=== PATIENT | female | born 1980 | race Hispanic/Latino ===

== ENCOUNTER 2020-09-14 17:51 | Emergency (ER) | payer MEDICAID ==
[2020-09-14 18:06] VITALS: BP 141/76
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
== END 2020-09-14 18:32 | disposition left against medical advice (07) ==
LOC: ED 17:51
DX: R10.9 Unspecified abdominal pain (principal); Z53.21 Procedure and treatment not carried out due to patient leaving prior to being seen by health care provider

== ENCOUNTER 2020-09-30 12:00 | Emergency (ER) | payer MEDICAID ==
[2020-09-30 12:28] VITALS: BP 127/87
[2020-09-30] MEDS ORDERED: ONDANSETRON 4 MG ODT TAB PO ONE (13:53)
[2020-09-30] MEDS ORDERED: ONDANSETRON 4 MG ODT TAB ONE (13:53)
--- NOTE | 2020-09-30 13:53 | Event Note ---
ED Screening Note ED Screening Note: left sided abd pain this morning +n/v no diarrhea normal BM yesterday PMHx fibromyalgia, PUD, Protein C deficiency adverse reaction to compazine unsure of last menstrual cycle only abd surgery hx is tubal ligation This initial assessment/diagnostic orders/clinical plan/treatment(s) is/are subject to change based on patients health status, clinical progression and re- assessment by fellow clinical providers in the ED. Further treatment and workup at subsequent clinical providers discretion. Patient/guardian urged not to elope from the ED as their condition may be serious if not clinically assessed and managed. Initial orders include: labs, UA zofran ODT
[2020-09-30 14:24] LABS: Basophils % (Auto) 0.5 % (0.0-1.8); Eosinophils % (Auto) 0.1 % (0.0-4.3); Hematocrit 45.5 % (30.3-42.9); Hemoglobin 15.5 gm/dl (10.1-14.3); Lymphocytes # (Auto) 1.6 K/mm3 (1.2-5.4); Lymphocytes % (Auto) 17.8 % (13.4-35.0); Mean Corpuscular HGB Conc 34 % (30-34); Mean Corpuscular Volume 92 fl (79-97); Monocytes # (Auto) 0.2 K/mm3 (0.0-0.8); Monocytes % (Auto) 2.5 % (0.0-7.3); Platelet Count 197 K/mm3 (140-440); Red Blood Count 4.97 M/mm3 (3.65-5.03); Red Cell Distribution Width 13.9 % (13.2-15.2)
[2020-09-30] MEDS ORDERED: SODIUM CHLORIDE 0.9% 1000 ML 1,000 ML IV ONE (14:46)
[2020-09-30] MEDS ORDERED: KETOROLAC 30 MG/1 ML INJ IV ONE (14:46)
[2020-09-30] MEDS ORDERED: DICYCLOMINE 20 MG/2 ML INJ IM ONE (14:46)
--- NOTE | 2020-09-30 14:49 | Emergency Department Report ---
<ELINOR RENE - Last Filed: 09/30/20 17:37> ED Abdominal Pain HPI - General Chief Complaint: Abdominal Pain Stated Complaint: ABD PAIN/VOMITING Time Seen by Provider: 09/30/20 13:51 Source: patient Mode of arrival: Wheelchair Limitations: No Limitations - History of Present Illness Initial Comments: 40-year-old female with a past medical history of protein C deficiency, history of PE, not currently on any anticoagulants, peptic ulcer disease, gallstones, and chronic pain currently on methadone presents to the ER today complaining of left-sided abdominal pain. Patient states that symptoms started a day and a half ago. She states that initially was an intermittent pain but today has been more constant. She reports associated nausea and vomiting since yesterday. She states that she has vomited about 3-4 times, emesis is mainly food without hematemesis or coffee ground She denies any diarrhea constipation. She denies any fever or chills. She denies any UTI symptoms. She chest pain or SOB. She is unsure of her last menstrual cycle, and she is not on any control. She states that she is not sure of . Patient denies similar pain in the past. Patient states that she has not taken her methadone in 3 days, she states that she has been able to get a ride to the clinic. She reports no chest pain, shortness of breath or any other symptoms at this time. MD Complaint: abdominal pain -: days(s) (1.5) Location: [facility] Migration to: no migration Severity scale (0 -10): 8 - Related Data Home Medications Medication Instructions Recorded Confirmed Last Taken Methadone 50 mg PO DAILY 08/25/18 08/25/18 08/22/18 Previous Rx's Medication Instructions Recorded Last Taken Type Ketorolac [Toradol] 10 mg PO Q6H PRN #20 tablet 08/28/18 Unknown Rx Nystatin/Triamcin 30 gm TP BID #1 cream..g. 09/04/18 Unknown Rx [Nystatin-Triamcinolone Cream] Docusate Sodium [Colace] 100 mg PO BID #30 capsule 09/30/20 Unknown Rx Magnesium Citrate [Citrate of 296 ml PO ONCE #1 solution 09/30/20 Unknown Rx Magnesia] Allergies Allergy/AdvReac Type Severity Reaction Status Date / Time No Known Allergies Allergy Verified 09/14/20 18:03 ED Review of Systems Comment: All other systems reviewed and negative Constitutional: denies: chills, fever Eyes: denies: eye pain, eye discharge, vision change ENT: denies: ear pain, throat pain Respiratory: denies: cough, shortness of breath, wheezing Cardiovascular: denies: chest pain, palpitations Gastrointestinal: abdominal pain, nausea, vomiting Genitourinary: denies: urgency, dysuria, frequency, hematuria, discharge, abnormal menses Musculoskeletal: denies: back pain, joint swelling, arthralgia Skin: denies: rash, lesions Neurological: denies: headache, weakness, paresthesias Psychiatric: denies: anxiety, depression Hematological/Lymphatic: denies: easy bleeding, easy bruising ED Past Medical Hx - Past Medical History Previous Medical History?: Yes Hx Deep Vein Thrombosis: Yes (Protein C Def.) Hx Pulmonary Embolism: Yes (Protein C Def.) Hx Seizures: Yes (2 yrs ago) Hx Asthma: No Additional medical history: Gallstones, Recent admission EGD dx ulcers, Thickening of the esophagus and biopsies done - Surgical History Past Surgical History?: Yes Hx Pacemaker: No Hx Internal Defibrillator: No Additional Surgical History: Tubal ligation, Right arm cyst removed - Social History Smoking Status: Current Every Day Smoker Substance Use Type: Marijuana - Medications Home Medications: Home Medications Medication Instructions Recorded Confirmed Last Taken Type Methadone 50 mg PO DAILY 08/25/18 08/25/18 08/22/18 History Ketorolac [Toradol] 10 mg PO Q6H PRN #20 tablet 08/28/18 Unknown Rx Nystatin/Triamcin 30 gm TP BID #1 cream..g. 09/04/18 Unknown Rx [Nystatin-Triamcinolone Cream] Docusate Sodium [Colace] 100 mg PO BID #30 capsule 09/30/20 Unknown Rx Magnesium Citrate [Citrate of 296 ml PO ONCE #1 solution 09/30/20 Unknown Rx Magnesia] ED Physical Exam - General Limitations: No Limitations General appearance: alert, in no apparent distress - Head Head exam: Present: atraumatic, normocephalic, normal inspection - Eye Eye exam: Present: normal appearance, PERRL, EOMI - ENT ENT exam: Present: normal exam, normal orophraynx, mucous membranes dry - Neck Neck exam: Present: normal inspection - Respiratory Respiratory exam: Present: normal lung sounds bilaterally. Absent: respiratory distress - Cardiovascular Cardiovascular Exam: Present: regular rate, normal rhythm, normal heart sounds - GI/Abdominal GI/Abdominal exam: Present: soft, tenderness (LUQ). Absent: distended, rebound - Extremities Exam Extremities exam: Present: normal inspection - Back Exam Back exam: Present: normal inspection, full ROM - Neurological Exam Neurological exam: Present: alert, oriented X3, CN II-XII intact, normal gait - Psychiatric Psychiatric exam: Present: normal affect, normal mood - Skin Skin exam: Present: intact ED Medical Decision Making - Lab Data Result diagrams: 09/30/20 14:13 09/30/20 14:13 - Medical Decision Making 1740 -- Case/labs Discussed with Nicholas Fritz. CT UA and EKG pending. ED Disposition Clinical Impression: Constipation Qualifiers: Constipation type: unspecified constipation type Qualified Code(s): K59.00 - Constipation, unspecified Disposition: TO HOME OR SELFCARE Condition: Stable Instructions: Abdominal Pain (ED), Constipation, Adult, Constipation, Adult, [id number] Prescriptions: Magnesium Citrate [Citrate of Magnesia] 296 ml PO ONCE #1 solution Docusate Sodium [Colace] 100 mg PO BID #30 capsule Referrals: JAMEEL CALLAWAY MD [Staff Physician] - 3-5 Days <NICHOLAS FRITZ - Last Filed: 09/30/20 18:08> ED Review of Systems ROS: Stated complaint: ABD PAIN/VOMITING Other details as noted in HPI ED Course Vital Signs 09/30/20 12:26 Temperature 98.5 F Pulse Rate 78 Respiratory 17 Rate Blood Pressure 127/87 [Left] O2 Sat by Pulse 97 Oximetry ED Medical Decision Making - Lab Data Result diagrams: 09/30/20 14:13 09/30/20 14:13 Labs 09/30/20 09/30/20 09/30/20 14:13 14:13 14:13 WBC 8.8 RBC 4.97 Hgb 15.5 H Hct 45.5 H MCV 92 MCH 31 MCHC 34 RDW 13.9 Plt Count 197 Lymph % (Auto) 17.8 [place] % (Auto) 2.5 Eos % (Auto) 0.1 Baso % (Auto) 0.5 Lymph # (Auto) 1.6 [place] # (Auto) 0.2 Eos # (Auto) 0.0 Baso # (Auto) 0.0 Seg Neutrophils % 79.1 H Seg Neutrophils # 7.0 Sodium 136 L Potassium 4.0 Chloride 102.3 Carbon Dioxide 23 Anion Gap 15 BUN 11 Creatinine 0.6 Estimated GFR > 60 BUN/Creatinine Ratio 18 Glucose 130 H Calcium 10.4 H Total Bilirubin 0.80 AST 78 H ALT 117 H Alkaline Phosphatase 89 Troponin T Total Protein 8.3 H Albumin 4.3 Albumin/Globulin Ratio 1.1 Lipase 29 HCG, Quant < 2 09/30/20 14:48 WBC RBC Hgb Hct MCV MCH MCHC RDW Plt Count Lymph % (Auto) [place] % (Auto) Eos % (Auto) Baso % (Auto) Lymph # (Auto) [place] # (Auto) Eos # (Auto) Baso # (Auto) Seg Neutrophils % Seg Neutrophils # Sodium Potassium Chloride Carbon Dioxide Anion Gap BUN Creatinine Estimated GFR BUN/Creatinine Ratio Glucose Calcium Total Bilirubin AST ALT Alkaline Phosphatase Troponin T < 0.010 Total Protein Albumin Albumin/Globulin Ratio Lipase HCG, Quant - Radiology Data Radiology results: report reviewed, image reviewed Findings Reporting MD: Kaleb Vela Dictation Time: September 30, 2020 16:37 Unix System Administrator: Not available Cad Draftsman Date: CT abdomen pelvis with and without con INDICATION / CLINICAL INFORMATION: Severe left sided abdominal pain. TECHNIQUE: Axial CT images were obtained through the abdomen and pelvis prior to and after IV contrast. All CT scans at this location are performed using CT dose reduction for ALARA by means of automated exposure control. COMPARISON: 08/24/2018. FINDINGS: LOWER CHEST: Unremarkable LIVER: Unremarkable GALLBLADDER/BILIARY TREE: Unremarkable PANCREAS: Unremarkable SPLEEN: Unremarkable ADRENALS: Unremarkable KIDNEYS / URETER: Partially duplicated left collecting system. No hydronephrosis. Kidneys enhance symmetrically. URINARY BLADDER: Unremarkable REPRODUCTIVE ORGANS: Uterus is unremarkable for age. There is a 3 cm right ovarian cyst. STOMACH / SMALL BOWEL: Stomach and small bowel are normal in caliber. No evidence of bowel inflammation. COLON: Moderate amount of stool distends the rectal vault. No colonic wall thickening or pericolonic inflammatory stranding. The appendix is normal in caliber. LYMPH NODES: No significant adenopathy. VASCULATURE: No significant abnormality. OTHER: No free air, free fluid, or focal fluid collection is identified. SKELETAL SYSTEM: No acute osseous findings. IMPRESSION: 1. Moderate amount of stool distends the rectal vault. Correlate for fecal impaction. 2. Otherwise, no acute process of the abdomen or pelvis. Signer Name: Kaleb Vela MD Signed: 09/30/2020 4:37 PM Workstation Name: [id number] - Medical Decision Making CT abdomen and pelvis demonstrates moderate stool loading, no acute findings, discussed findings with patient, patient states last bowel movement yesterday scant amount "small rabbit pellets". Discussed constipation, hydration. Will DC to home with laxative of choice , hydrate as discussed, follow-up with PCP in 2 to 3 days. Patient verbalizes agreement and understanding with discharge plan. Patient will be DC'd home in stable condition at this time. Critical care attestation.: If time is entered above; I have spent that time in minutes in the direct care of this critically ill patient, excluding procedure time. ED Disposition Is pt being admited?: No Does the pt Need Aspirin: No Time of Disposition: 18:08
[2020-09-30] MEDS: PROMETHAZINE 25 MG TAB PO ONE ×2 (15:04→15:16)
[2020-09-30] MEDS: FAMOTIDINE 20 MG TAB PO ONE ×2 (15:04→15:16)
[2020-09-30] MEDS ORDERED: PROCHLORPERAZINE EDISYLATE 10 MG/2 ML VIAL IV NR (15:11)
[2020-09-30] MEDS ORDERED: FAMOTIDINE 20 MG/2 ML INJ IV ONE (15:11)
[2020-09-30 15:39] LABS: Alanine Aminotransferase 117 units/L (7-56); Albumin 4.3 g/dL (3.9-5); Blood Urea Nitrogen 11 mg/dL (7-17); Calcium 10.4 mg/dL (8.4-10.2); Hemolysis Index 7
[2020-09-30 15:46] LABS: BUN/Creatinine Ratio 18
--- NOTE | 2020-09-30 17:42 | Cat Scan Report ---
CT abdomen pelvis with and without con INDICATION / CLINICAL INFORMATION: Severe left sided abdominal pain. TECHNIQUE: Axial CT images were obtained through the abdomen and pelvis prior to and after IV contras t. All CT scans at this location are performed using CT dose reduction for ALARA by means of automat ed exposure control. COMPARISON: 08/24/2018. FINDINGS: LOWER CHEST: Unremarkable LIVER: Unremarkable GALLBLADDER/BILIARY TREE: Unremarkable PANCREAS: Unremarkable SPLEEN: Unremarkable ADRENALS: Unremarkable KIDNEYS / URETER: Partially duplicated left collecting system. No hydronephrosis. Kidneys enhance sym metrically. URINARY BLADDER: Unremarkable REPRODUCTIVE ORGANS: Uterus is unremarkable for age. There is a 3 cm right ovarian cyst. STOMACH / SMALL BOWEL: Stomach and small bowel are normal in caliber. No evidence of bowel inflammati on. COLON: Moderate amount of stool distends the rectal vault. No colonic wall thickening or pericolonic inflammatory stranding. The appendix is normal in caliber. LYMPH NODES: No significant adenopathy. VASCULATURE: No significant abnormality. OTHER: No free air, free fluid, or focal fluid collection is identified. SKELETAL SYSTEM: No acute osseous findings. IMPRESSION: 1. Moderate amount of stool distends the rectal vault. Correlate for fecal impaction. 2. Otherwise, no acute process of the abdomen or pelvis. Signer Name: Kaleb Vela MD Signed: 09/30/2020 5:37 PM Workstation Name: [id number]
[2020-09-30] MEDS ORDERED: FLEET ENEMA PR ONE (17:59)
== END 2020-09-30 18:25 | disposition home or self-care (01) ==
LOC: ED 12:00
DX: K59.00 Constipation, unspecified (principal); F17.200 Nicotine dependence, unspecified, uncomplicated; F12.90 Cannabis use, unspecified, uncomplicated; Z79.899 Other long term (current) drug therapy; Z86.69 Personal history of other diseases of the nervous system and sense organs; Z98.890 Other specified postprocedural states; Z98.51 Tubal ligation status
CPT/HCPCS: 36415; 74177; 80053; 83690; 84484; 84702; 85025; 96361; 96374; 96375; 99284; J0780; J1885; J7030; Q9967; Q0162; Q0169

== ENCOUNTER 2020-10-14 05:07 | Emergency (ER) | payer MEDICAID | END 2020-10-14 07:21 | disposition left against medical advice (07) | LOC: ED 05:07 | DX: M79.10 Myalgia, unspecified site (principal); Z53.21 Procedure and treatment not carried out due to patient leaving prior to being seen by health care provider ==

== ENCOUNTER 2020-10-14 07:33 | Emergency (ER) | payer MEDICAID ==
[2020-10-14 07:56] VITALS: BP 124/80
[2020-10-14 08:35] LABS: Bilirubin,Urine NEG (Negative); Blood,Urine NEG (Negative); Color,Urine Yellow (Yellow); Mucus,Urine 3+ /HPF; Protein,Urine <15 mg/dL mg/dL (Negative); Urobilinogen,Urine < 2.0 mg/dL (<2.0)
[2020-10-14 08:37] LABS: HCG Qualitative,Urine Negative (Negative)
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
== END 2020-10-14 09:13 | disposition home or self-care (01) ==
LOC: ED 07:33
DX: R10.9 Unspecified abdominal pain (principal); F17.200 Nicotine dependence, unspecified, uncomplicated; F12.90 Cannabis use, unspecified, uncomplicated; Z88.8 Allergy status to other drugs, medicaments and biological substances; Z79.899 Other long term (current) drug therapy; Z86.69 Personal history of other diseases of the nervous system and sense organs; Z98.890 Other specified postprocedural states; Z98.51 Tubal ligation status; Z59.0 Homelessness
CPT/HCPCS: 81001; 81025

== ENCOUNTER 2020-10-14 21:43 | Emergency (ER) | payer MEDICAID ==
[2020-10-15 02:56] VITALS: BP 125/72
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
== END 2020-10-15 05:25 | disposition home or self-care (01) ==
LOC: ED 21:43
DX: R63.0 Anorexia (principal); F17.200 Nicotine dependence, unspecified, uncomplicated; Z98.51 Tubal ligation status; Z59.0 Homelessness; Z79.899 Other long term (current) drug therapy; Z86.711 Personal history of pulmonary embolism; Z79.01 Long term (current) use of anticoagulants; Z86.718 Personal history of other venous thrombosis and embolism
CPT/HCPCS: 99282

== ENCOUNTER 2020-12-03 16:54 | Emergency (ER) | payer MEDICAID ==
[2020-12-03 17:11] VITALS: BP 115/72
--- NOTE | 2020-12-03 17:16 | Emergency Department Report ---
ED General Adult HPI - General Chief complaint: Pain General Stated complaint: HEADACHE Time Seen by Provider: 12/03/20 17:12 Source: patient Mode of arrival: Ambulatory Limitations: No Limitations - History of Present Illness Initial comments: Patient is a 40-year-old female presents emergency room complaints of vague symptoms that have been occurring for a month. She states her symptoms are generalized body aches, headache, back ache, ear pain. It appears that she has been seen for the symptoms in the past and that this is actually been going on for more than a month. She has not followed up with her primary care doctor. She denies any fever, nausea, vomiting, diarrhea, cough, chest pain, shortness of breath, abdominal pain, leg pain, leg swelling. She has an allergy to prochlorperazine. - Related Data Home Medications Medication Instructions Recorded Confirmed Last Taken Methadone 50 mg PO DAILY 08/25/18 08/25/18 08/22/18 Previous Rx's Medication Instructions Recorded Last Taken Type Ketorolac [Toradol] 10 mg PO Q6H PRN #20 tablet 08/28/18 Unknown Rx Nystatin/Triamcin 30 gm TP BID #1 cream..g. 09/04/18 Unknown Rx [Nystatin-Triamcinolone Cream] Docusate Sodium [Colace] 100 mg PO BID #30 capsule 09/30/20 Unknown Rx Magnesium Citrate [Citrate of 296 ml PO ONCE #1 solution 09/30/20 Unknown Rx Magnesia] Naproxen [EC-Naprosyn] 500 mg PO BID PRN #14 tablet.dr 12/03/20 Unknown Rx cephALEXin [Keflex] 500 mg PO BID 7 Days #14 cap 12/03/20 Unknown Rx methOCARBAMOL [Robaxin TAB] 500 mg PO BID PRN #14 tab 12/03/20 Unknown Rx Allergies Allergy/AdvReac Type Severity Reaction Status Date / Time prochlorperazine Allergy Unknown Verified 12/03/20 17:09 [From Compazine] ED Review of Systems ROS: Stated complaint: HEADACHE Other details as noted in HPI Comment: All other systems reviewed and negative ED Past Medical Hx - Past Medical History Hx Deep Vein Thrombosis: Yes (Protein C Def.) Hx Pulmonary Embolism: Yes (Protein C Def.) Hx Seizures: Yes (2 yrs ago) Hx Asthma: No Additional medical history: Gallstones, Recent admission EGD dx ulcers, Thickening of the esophagus and biopsies done - Surgical History Hx Pacemaker: No Hx Internal Defibrillator: No Additional Surgical History: Tubal ligation, Right arm cyst removed - Social History Smoking Status: Current Every Day Smoker Substance Use Type: None - Medications Home Medications: Home Medications Medication Instructions Recorded Confirmed Last Taken Type Methadone 50 mg PO DAILY 08/25/18 08/25/18 08/22/18 History Ketorolac [Toradol] 10 mg PO Q6H PRN #20 tablet 08/28/18 Unknown Rx Nystatin/Triamcin 30 gm TP BID #1 cream..g. 09/04/18 Unknown Rx [Nystatin-Triamcinolone Cream] Docusate Sodium [Colace] 100 mg PO BID #30 capsule 09/30/20 Unknown Rx Magnesium Citrate [Citrate of 296 ml PO ONCE #1 solution 09/30/20 Unknown Rx Magnesia] Naproxen [EC-Naprosyn] 500 mg PO BID PRN #14 tablet.dr 12/03/20 Unknown Rx cephALEXin [Keflex] 500 mg PO BID 7 Days #14 cap 12/03/20 Unknown Rx methOCARBAMOL [Robaxin TAB] 500 mg PO BID PRN #14 tab 12/03/20 Unknown Rx ED Physical Exam - General Limitations: No Limitations General appearance: alert, in no apparent distress - Head Head exam: Present: atraumatic, normocephalic - Eye Eye exam: Present: normal appearance - ENT ENT exam: Present: normal orophraynx, mucous membranes moist, TM's normal bilaterally, normal external ear exam - Respiratory Respiratory exam: Present: normal lung sounds bilaterally. Absent: respiratory distress, wheezes, rales, rhonchi, stridor, chest wall tenderness, accessory muscle use, decreased breath sounds, prolonged expiratory - Cardiovascular Cardiovascular Exam: Present: regular rate, normal rhythm, normal heart sounds. Absent: systolic murmur, diastolic murmur, rubs, gallop - Back Exam Back exam: Present: normal inspection, full ROM. Absent: CVA tenderness (R), CVA tenderness (L), paraspinal tenderness, vertebral tenderness - Neurological Exam Neurological exam: Present: alert, oriented X3 - Psychiatric Psychiatric exam: Present: normal affect, normal mood - Skin Skin exam: Present: warm, dry, intact ED Course Vital Signs 12/03/20 17:10 Temperature 98.3 F Pulse Rate 85 Respiratory 16 Rate Blood Pressure 115/72 O2 Sat by Pulse 96 Oximetry - Reevaluation(s) Reevaluation #1: 12/03/20 18:41 Attempted to call patient for discharge, unable to locate patient, attempted to call number on patient's chart and it is not in service ED Medical Decision Making - Lab Data Result diagrams: 12/03/20 17:35 12/03/20 17:35 Lab Results 12/03/20 12/03/20 12/03/20 Range/Units 17:22 17:35 17:35 WBC 9.8 (4.5-11.0) K/mm3 RBC 4.29 (3.65-5.03) M/mm3 Hgb 13.9 (10.1-14.3) gm/dl Hct 40.5 (30.3-42.9) % MCV 94 (79-97) fl MCH 32 (28-32) pg MCHC 34 (30-34) % RDW 14.4 (13.2-15.2) % Plt Count 197 (140-440) K/mm3 Lymph % (Auto) 22.2 (13.4-35.0) % [place] % (Auto) 7.0 (0.0-7.3) % Eos % (Auto) 0.9 (0.0-4.3) % Baso % (Auto) 0.4 (0.0-1.8) % Lymph # (Auto) 2.2 (1.2-5.4) K/mm3 [place] # (Auto) 0.7 (0.0-0.8) K/mm3 Eos # (Auto) 0.1 (0.0-0.4) K/mm3 Baso # (Auto) 0.0 (0.0-0.1) K/mm3 Seg Neutrophils % 69.5 (40.0-70.0) % Seg Neutrophils # 6.8 (1.8-7.7) K/mm3 Sodium 137 (137-145) mmol/L Potassium 4.0 (3.6-5.0) mmol/L Chloride 104.0 (98-107) mmol/L Carbon Dioxide 20 L (22-30) mmol/L Anion Gap 17 mmol/L BUN 23 H (7-17) mg/dL Creatinine 0.6 (0.6-1.2) mg/dL Estimated GFR > 60 ml/min BUN/Creatinine Ratio 38 % Glucose 84 (65-100) mg/dL Calcium 9.2 (8.4-10.2) mg/dL Magnesium 2.00 (1.7-2.3) mg/dL Total Bilirubin 1.00 (0.1-1.2) mg/dL AST 57 H (5-40) units/L ALT 70 H (7-56) units/L Alkaline Phosphatase 96 (35-129) units/L Total Creatine Kinase 87 (30-135) units/L Total Protein 7.1 (6.3-8.2) g/dL Albumin 4.3 (3.9-5) g/dL Albumin/Globulin Ratio 1.5 % HCG, Qual (Negative) Urine Color Yellow (Yellow) Urine Turbidity Hazy (Clear) Urine pH 5.0 (5.0-7.0) Ur Specific [place] 1.028 (1.003-1.030) Urine Protein <15 mg/dl (Negative) mg/dL Urine Glucose (UA) Neg (Negative) mg/dL Urine Ketones Neg (Negative) mg/dL Urine Blood Sm (Negative) Urine Nitrite Neg (Negative) Urine Bilirubin Neg (Negative) Urine Urobilinogen < 2.0 (<2.0) mg/dL Ur Leukocyte Esterase Tr (Negative) Urine WBC (Auto) 7.0 H (0.0-6.0) /HPF Urine RBC (Auto) 1.0 (0.0-6.0) /HPF U Epithel Cells (Auto) 9.0 (0-13.0) /HPF Urine Bacteria (Auto) 2+ (Negative) /HPF Urine Mucus 1+ /HPF 12/03/20 Range/Units 17:35 WBC (4.5-11.0) K/mm3 RBC (3.65-5.03) M/mm3 Hgb (10.1-14.3) gm/dl Hct (30.3-42.9) % MCV (79-97) fl MCH (28-32) pg MCHC (30-34) % RDW (13.2-15.2) % Plt Count (140-440) K/mm3 Lymph % (Auto) (13.4-35.0) % [place] % (Auto) (0.0-7.3) % Eos % (Auto) (0.0-4.3) % Baso % (Auto) (0.0-1.8) % Lymph # (Auto) (1.2-5.4) K/mm3 [place] # (Auto) (0.0-0.8) K/mm3 Eos # (Auto) (0.0-0.4) K/mm3 Baso # (Auto) (0.0-0.1) K/mm3 Seg Neutrophils % (40.0-70.0) % Seg Neutrophils # (1.8-7.7) K/mm3 Sodium (137-145) mmol/L Potassium (3.6-5.0) mmol/L Chloride (98-107) mmol/L Carbon Dioxide (22-30) mmol/L Anion Gap mmol/L BUN (7-17) mg/dL Creatinine (0.6-1.2) mg/dL Estimated GFR ml/min BUN/Creatinine Ratio % Glucose (65-100) mg/dL Calcium (8.4-10.2) mg/dL Magnesium (1.7-2.3) mg/dL Total Bilirubin (0.1-1.2) mg/dL AST (5-40) units/L ALT (7-56) units/L Alkaline Phosphatase (35-129) units/L Total Creatine Kinase (30-135) units/L Total Protein (6.3-8.2) g/dL Albumin (3.9-5) g/dL Albumin/Globulin Ratio % HCG, Qual Negative (Negative) Urine Color (Yellow) Urine Turbidity (Clear) Urine pH (5.0-7.0) Ur Specific [place] (1.003-1.030) Urine Protein (Negative) mg/dL Urine Glucose (UA) (Negative) mg/dL Urine Ketones (Negative) mg/dL Urine Blood (Negative) Urine Nitrite (Negative) Urine Bilirubin (Negative) Urine Urobilinogen (<2.0) mg/dL Ur Leukocyte Esterase (Negative) Urine WBC (Auto) (0.0-6.0) /HPF Urine RBC (Auto) (0.0-6.0) /HPF U Epithel Cells (Auto) (0-13.0) /HPF Urine Bacteria (Auto) (Negative) /HPF Urine Mucus /HPF Vital Signs 12/03/20 17:10 Temperature 98.3 F Pulse Rate 85 Respiratory 16 Rate Blood Pressure 115/72 O2 Sat by Pulse 96 Oximetry - Medical Decision Making Patient is a 40-year-old female presents emergency room complaints of vague symptoms that have been occurring for a month. She states her symptoms are generalized body aches, headache, back ache, ear pain. It appears that she has been seen for the symptoms in the past and that this is actually been going on for more than a month. She has not followed up with her primary care doctor. She denies any fever, nausea, vomiting, diarrhea, cough, chest pain, shortness of breath, abdominal pain, leg pain, leg swelling. She has an allergy to pr ochlorperazine. Vitals are normal. No abnormality on physical examination as documented in chart. Labs are stable. UA shows evidence of mild UTI. Patient given prescription for naproxen, Robaxin, Keflex. Discussed all results with patient answered questions. Discussed the importance of primary care follow-up as she has had the symptoms for some time now. Advised patient Please take medication as prescribed. Increase your water intake. Follow-up with your primary care doctor. Return to emergency room for any new or worsening symptoms. Please avoid alcohol or Tylenol use. Critical care attestation.: If time is entered above; I have spent that time in minutes in the direct care of this critically ill patient, excluding procedure time. ED Disposition Clinical Impression: Generalized body aches, Elevated LFTs Back ache Qualifiers: Back pain location: low back pain Chronicity: acute Back pain laterality: bilat eral Sciatica presence: without sciatica Qualified Code(s): M54.5 - Low back pain Headache Qualifiers: Headache type: unspecified Headache chronicity pattern: acute headache Intractability: not intractable Qualified Code(s): R51.9 - Headache, unspecified UTI (urinary tract infection) Qualifiers: Urinary tract infection type: acute cystitis Hematuria presence: without hematuria Qualified Code(s): N30.00 - Acute cystitis without hematuria Disposition: - TO HOME OR SELFCARE Is pt being admited?: No Does the pt Need Aspirin: No Condition: Stable Instructions: Urinary Tract Infection, Adult, Musculoskeletal Pain Additional Instructions: Please take medication as prescribed. Increase your water intake. Follow-up with your primary care doctor. Return to emergency room for any new or worsening symptoms. Please avoid alcohol or Tylenol use. Prescriptions: Naproxen [EC-Naprosyn] 500 mg PO BID PRN #14 tablet. PRN Reason: pain cephALEXin [Keflex] 500 mg PO BID 7 Days #14 cap methOCARBAMOL [Robaxin TAB] 500 mg PO BID PRN #14 tab PRN Reason: pain Referrals: KOTA FUNES MD [Staff Physician] - 3-5 Days [facility] [Provider Group] - 3-5 Days [facility] [Outside] - 3-5 Days [facility], [LAB/CONTRACT] - 3-[address] [facility] [place] [Outside] - 3-5 Days Time of Disposition: 18:29 Print Language: DOMINICAN
[2020-12-03 17:41] LABS: Bacteria,Urine 2+ /HPF (Negative); Bilirubin,Urine NEG (Negative); Blood,Urine SM (Negative); Color,Urine Yellow (Yellow); Mucus,Urine 1+ /HPF; Protein,Urine <15 mg/dL mg/dL (Negative); Urobilinogen,Urine < 2.0 mg/dL (<2.0)
[2020-12-03 17:47] LABS: Basophils % (Auto) 0.4 % (0.0-1.8); Eosinophils # (Auto) 0.1 K/mm3 (0.0-0.4); Eosinophils % (Auto) 0.9 % (0.0-4.3); Hematocrit 40.5 % (30.3-42.9); Hemoglobin 13.9 gm/dl (10.1-14.3); Lymphocytes # (Auto) 2.2 K/mm3 (1.2-5.4); Lymphocytes % (Auto) 22.2 % (13.4-35.0); Mean Corpuscular HGB Conc 34 % (30-34); Mean Corpuscular Volume 94 fl (79-97); Monocytes # (Auto) 0.7 K/mm3 (0.0-0.8); Platelet Count 197 K/mm3 (140-440); Red Blood Count 4.29 M/mm3 (3.65-5.03); Red Cell Distribution Width 14.4 % (13.2-15.2)
[2020-12-03 18:06] LABS: Alanine Aminotransferase 70 units/L (7-56); Albumin 4.3 g/dL (3.9-5); Blood Urea Nitrogen 23 mg/dL (7-17); Calcium 9.2 mg/dL (8.4-10.2); Hemolysis Index 4
[2020-12-03 18:13] LABS: BUN/Creatinine Ratio 38
== END 2020-12-03 18:48 | disposition home or self-care (01) ==
LOC: ED 16:54
DX: N39.0 Urinary tract infection, site not specified (principal); R94.5 Abnormal results of liver function studies; R51.9 Headache, unspecified; M54.6 Pain in thoracic spine; R56.9 Unspecified convulsions; F17.200 Nicotine dependence, unspecified, uncomplicated; Z98.890 Other specified postprocedural states; Z79.899 Other long term (current) drug therapy; Z88.8 Allergy status to other drugs, medicaments and biological substances
CPT/HCPCS: 36415; 80053; 81001; 82550; 83735; 84703; 85025; 87086

== ENCOUNTER 2022-05-21 19:51 | Emergency (ER) | payer MEDICAID ==
[2022-05-21 21:18] VITALS: BP 126/83
--- NOTE | 2022-05-21 21:34 | Emergency Department Report ---
ED N/V/D HPI - General Chief complaint: Nausea/Vomiting/Diarrhea Stated complaint: EMESIS PUI?: No Time Seen by Provider: 05/21/22 21:26 Source: patient, EMS Mode of arrival: Stretcher Limitations: No Limitations - History of Present Illness Initial comments: Patient is a 42-year-old female that presents emergency room for nausea vomiting. Patient denies abdominal pain. Patient states that when she vomits she she sweats a lot. Patient complains of fever. Patient denies cough. Patient denies respiratory symptoms. Patient states her symptoms been going on for 2 days. Patient states her symptoms are worsening. Patient brought in by EMS. Patient denies blood in her vomitus. Patient denies diarrhea. Patient denies blood in her stool. Patient denies recent travel. Patient denies recent international travel. Tez anand denies exposure to the novel coronavirus. Patient denies sick contacts. Patient denies cough. Patient denies diarrhea. Patient denies coming in contact with anybody with symptoms of the novel coronavirus. MD complaint: nausea, vomiting -: Sudden Description of Vomiting: watery Associated Abdominal Pain: No Radiation: none Severity: moderate - Related Data Home Medications Medication Instructions Recorded Confirmed Last Taken Methadone 50 mg PO DAILY 08/25/18 08/25/18 08/22/18 Previous Rx's Medication Instructions Recorded Last Taken Type Ketorolac [Toradol] 10 mg PO Q6H PRN #20 tablet 08/28/18 Unknown Rx Nystatin/Triamcin 30 gm TP BID #1 cream..g. 09/04/18 Unknown Rx [Nystatin-Triamcinolone Cream] Docusate Sodium [Colace] 100 mg PO BID #30 capsule 09/30/20 Unknown Rx Magnesium Citrate [Citrate of 296 ml PO ONCE #1 solution 09/30/20 Unknown Rx Magnesia] Naproxen [EC-Naprosyn] 500 mg PO BID PRN #14 tablet.dr 12/03/20 Unknown Rx cephALEXin [Keflex] 500 mg PO BID 7 Days #14 cap 12/03/20 Unknown Rx methOCARBAMOL [Robaxin TAB] 500 mg PO BID PRN #14 tab 12/03/20 Unknown Rx Ondansetron [Zofran Odt] 4 mg PO Q6HR PRN #25 tab.rapdis 05/22/22 Unknown Rx Allergies Allergy/AdvReac Type Severity Reaction Status Date / Time prochlorperazine Allergy Unknown Verified 12/03/20 17:09 [From Compazine] ED Review of Systems ROS: Stated complaint: EMESIS Other details as noted in HPI Constitutional: denies: chills Eyes: denies: eye pain, eye discharge, vision change ENT: denies: ear pain, throat pain Respiratory: denies: cough, shortness of breath, wheezing Cardiovascular: denies: chest pain, palpitations Endocrine: no symptoms reported Gastrointestinal: as per HPI, nausea, vomiting. denies: abdominal pain, diarrhea Genitourinary: denies: urgency, dysuria, discharge Musculoskeletal: denies: back pain, joint swelling, arthralgia Skin: denies: rash, lesions Neurological: denies: headache, weakness, paresthesias Psychiatric: denies: anxiety, depression Hematological/Lymphatic: denies: easy bleeding, easy bruising ED Past Medical Hx - Past Medical History Previous Medical History?: Yes Hx Deep Vein Thrombosis: Yes (Protein C Def.) Hx Pulmonary Embolism: Yes (Protein C Def.) Hx Seizures: Yes (2 yrs ago) Hx Asthma: No Additional medical history: Gallstones, Recent admission EGD dx ulcers, Thickening of the esophagus and biopsies done - Surgical History Past Surgical History?: Yes Hx Pacemaker: No Hx Internal Defibrillator: No Additional Surgical History: Tubal ligation, Right arm cyst removed - Social History Smoking Status: Never Smoker Substance Use Type: None - Medications Home Medications: Home Medications Medication Instructions Recorded Confirmed Last Taken Type Methadone 50 mg PO DAILY 08/25/18 08/25/18 08/22/18 History Ketorolac [Toradol] 10 mg PO Q6H PRN #20 tablet 08/28/18 Unknown Rx Nystatin/Triamcin 30 gm TP BID #1 cream..g. 09/04/18 Unknown Rx [Nystatin-Triamcinolone Cream] Docusate Sodium [Colace] 100 mg PO BID #30 capsule 09/30/20 Unknown Rx Magnesium Citrate [Citrate of 296 ml PO ONCE #1 solution 09/30/20 Unknown Rx Magnesia] Naproxen [EC-Naprosyn] 500 mg PO BID PRN #14 tablet.dr 12/03/20 Unknown Rx cephALEXin [Keflex] 500 mg PO BID 7 Days #14 cap 12/03/20 Unknown Rx methOCARBAMOL [Robaxin TAB] 500 mg PO BID PRN #14 tab 12/03/20 Unknown Rx Ondansetron [Zofran Odt] 4 mg PO Q6HR PRN #25 tab.rapdis 05/22/22 Unknown Rx ED Physical Exam - General Limitations: No Limitations General appearance: alert, in no apparent distress - Head Head exam: Present: atraumatic, normocephalic - Eye Eye exam: Present: normal appearance - ENT ENT exam: Present: mucous membranes moist - Neck Neck exam: Present: normal inspection - Respiratory Respiratory exam: Present: normal lung sounds bilaterally. Absent: respiratory distress, wheezes, rales, rhonchi, chest wall tenderness, accessory muscle use, decreased breath sounds - Cardiovascular Cardiovascular Exam: Present: regular rate, normal rhythm. Absent: systolic murmur, diastolic murmur, rubs, gallop - GI/Abdominal GI/Abdominal exam: Present: soft, normal bowel sounds. Absent: distended, tenderness, guarding - Extremities Exam Extremities exam: Present: normal inspection - Back Exam Back exam: Present: normal inspection - Neurological Exam Neurological exam: Present: alert, oriented X3 - Psychiatric Psychiatric exam: Present: normal affect, normal mood - Skin Skin exam: Present: warm, dry, intact, normal color. Absent: rash ED Course Vital Signs 05/21/22 05/21/22 05/21/22 19:51 21:13 21:15 Temperature 98.2 F Pulse Rate 61 73 Respiratory 18 15 14 Rate Blood Pressure 113/79 126/83 O2 Sat by Pulse 96 100 Oximetry - Reevaluation(s) Reevaluation #1: Patient tolerating p.o. intake. Patient states her nausea and vomiting has resolved. Patient has not had any vomiting while in the ER. I discussed all results and clinical findings with patient. I discussed plan of care with patient. Patient agrees with plan of care. Patient is stable for discharge. Patient will be discharged home. Patient given discharge instructions. Patient voiced understanding of discharge instructions. 05/21/22 23:59 ED Medical Decision Making - Lab Data Result diagrams: 05/21/22 22:00 05/21/22 22:00 - Medical Decision Making Patient is a 42-year-old female that presents emergency room for nausea, vomiting, sweating, feverish feeling. Patient's vital signs were normal. Patient had labs done which were essentially unremarkable except for mild electrolyte imbalances. Patient has a potassium of 5.4. Patient's potassium to be monitored as an outpatient. Patient tolerated p.o. intake. Patient can rehy drate orally. Patient not require any further emergency medical service. Patient not require any inpatient services. Patient stable for discharge. I discussed all results and clinical findings with patient. I discussed plan of care with patient. Patient agrees with plan of care. Patient is stable for discharge. Patient will be discharged home. Patient given discharge instructions. Patient voiced understanding of discharge instructions. - Differential Diagnosis Dehydration, gastroenteritis, nausea, vomiting Critical care attestation.: If time is entered above; I have spent that time in minutes in the direct care of this critically ill patient, excluding procedure time. ED Disposition Clinical Impression: Gastroenteritis Nausea & vomiting Qualifiers: Vomiting type: unspecified Qualified Code(s): R11.2 - Nausea with vomiting, unspecified Disposition: HOME / SELF CARE / HOMELESS Is pt being admited?: No Does the pt Need Aspirin: No Condition: Stable Instructions: Nausea, Adult, Viral Gastroenteritis, Adult, [id number], Food Choices to Help Relieve Diarrhea, Adult, Nausea and Vomiting, Adult, [id number], Nausea and Vomiting, Adult Additional Instructions: Patient to follow-up with primary care in 2 to 3 days. Patient to rest. Patient to increase water. Patient to avoid strenuous exercise or heavy lifting until cleared by primary care.. Patient to take Tylenol as needed for pain. Patient to take meds as directed. Patient to return to the ER if condition worsens, changes or new symptoms arise. Prescriptions: Ondansetron [Zofran Odt] 4 mg PO Q6HR PRN #25 tab.rapdis PRN Reason: Nausea And Vomiting Referrals: KOTA FUNES MD [Staff Physician] - 2-3 Days Time of Disposition: 00:02
[2022-05-21] MEDS ORDERED: SODIUM CHLORIDE 0.9% 1000 ML 1,000 ML IV ONE (21:53)
[2022-05-21 22:35] LABS: Basophils % (Auto) 0.4 % (0.0-1.8); Eosinophils % (Auto) 0.4 % (0.0-4.3); Hematocrit 41.9 % (30.3-42.9); Hemoglobin 13.8 gm/dl (10.1-14.3); Lymphocytes # (Auto) 1.7 K/mm3 (1.2-5.4); Lymphocytes % (Auto) 13.6 % (13.4-35.0); Mean Corpuscular HGB Conc 33 % (30-34); Mean Corpuscular Volume 90 fl (79-97); Monocytes # (Auto) 0.8 K/mm3 (0.0-0.8); Monocytes % (Auto) 6.6 % (0.0-7.3); Platelet Count 244 K/mm3 (140-440); Red Blood Count 4.66 M/mm3 (3.65-5.03)
[2022-05-21 23:17] LABS: Alanine Aminotransferase 92 units/L (7-56); Albumin 4.5 g/dL (3.9-5); BUN/Creatinine Ratio 17; Blood Urea Nitrogen 15 mg/dL (7-17); Hemolysis Index 15
== END 2022-05-22 01:45 | disposition home or self-care (01) ==
LOC: ED 19:51
DX: K52.89 Other specified noninfective gastroenteritis and colitis (principal); R11.2 Nausea with vomiting, unspecified
CPT/HCPCS: 36415; 80053; 85025; 99283

== ENCOUNTER 2022-06-07 22:41 | Emergency (ER) | payer MEDICAID ==
--- NOTE | 2022-06-08 11:49 | Emergency Department Report ---
ED Chest Pain HPI - General Chief Complaint: Chest Pain Stated Complaint: CHEST PAIN Time Seen by Provider: 06/08/22 11:24 Source: patient, EMS Mode of arrival: Stretcher Limitations: No Limitations - History of Present Illness Initial Comments: Is a 42-year-old female with reported history of pulmonary embolism, who has been seen in the past for chest pain who presents to the emergency department complaining of left-sided chest pain that has been intermittent for 7 months, but which became severe and radiating into the left neck since yesterday. P atient also complains of fatigue, mild shortness of breath, and nausea. Patient denies vomiting, diarrhea, abdominal pain. Patient denies lightheadedness or diaphoresis. Denies difficulty swallowing. Patient denies any alleviating or aggravating factors. - Related Data Home Medications Medication Instructions Recorded Confirmed Last Taken Methadone 50 mg PO DAILY 08/25/18 08/25/18 08/22/18 Previous Rx's Medication Instructions Recorded Last Taken Type Ketorolac [Toradol] 10 mg PO Q6H PRN #20 tablet 08/28/18 Unknown Rx Docusate Sodium [Colace] 100 mg PO BID #30 capsule 09/30/20 Unknown Rx Magnesium Citrate [Citrate of 296 ml PO ONCE #1 solution 09/30/20 Unknown Rx Magnesia] Naproxen [EC-Naprosyn] 500 mg PO BID PRN #14 tablet.dr 12/03/20 Unknown Rx cephALEXin [Keflex] 500 mg PO BID 7 Days #14 cap 12/03/20 Unknown Rx methOCARBAMOL [Robaxin TAB] 500 mg PO BID PRN #14 tab 12/03/20 Unknown Rx Ondansetron [Zofran Odt] 4 mg PO Q6HR PRN #25 tab.rapdis 05/22/22 Unknown Rx HYDROcodone/APAP 5-325 [Mallie 1 each PO Q6HR PRN 3 Days #9 tablet 06/08/22 Unknown Rx 5/325] Nystatin/Triamcin 30 gm TP BID #1 cream..g. 06/08/22 Unknown Rx [Nystatin-Triamcinolone Cream] Allergies Allergy/AdvReac Type Severity Reaction Status Date / Time prochlorperazine Allergy Unknown Verified 12/03/20 17:09 [From Compazine] Heart Score - HEART Score History: Slightly suspicious EKG: Normal Age: < 45 Risk factors: 1-2 risk factors Troponin: < normal limit HEART Score: 1 - EKG Read Time Time EKG Completed: 12:44 EKG Read Time: 12:49 ED Review of Systems ROS: Stated complaint: CHEST PAIN Other details as noted in HPI Comment: All other systems reviewed and negative Constitutional: malaise, weakness. denies: chills, diaphoresis, fever Eyes: denies: eye pain, eye discharge, vision change ENT: denies: ear pain, throat pain Respiratory: shortness of breath. denies: cough, wheezing Cardiovascular: chest pain. 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.) Hx Pulmonary Embolism: Yes (Protein C Def.) Hx Seizures: Yes (2 yrs ago) Hx Asthma: No Additional medical history: Gallstones, Recent admission EGD dx ulcers, Thickening of the esophagus and biopsies done - Surgical History Hx Pacemaker: No Hx Internal Defibrillator: No Additional Surgical History: Tubal ligation, Right arm cyst removed - Social History Smoking Status: Never Smoker Substance Use Type: None - Medications Home Medications: Home Medications Medication Instructions Recorded Confirmed Last Taken Type Methadone 50 mg PO DAILY 08/25/18 08/25/18 08/22/18 History Ketorolac [Toradol] 10 mg PO Q6H PRN #20 tablet 08/28/18 Unknown Rx Docusate Sodium [Colace] 100 mg PO BID #30 capsule 09/30/20 Unknown Rx Magnesium Citrate [Citrate of 296 ml PO ONCE #1 solution 09/30/20 Unknown Rx Magnesia] Naproxen [EC-Naprosyn] 500 mg PO BID PRN #14 tablet 12/03/20 Unknown Rx cephALEXin [Keflex] 500 mg PO BID 7 Days #14 cap 12/03/20 Unknown Rx methOCARBAMOL [Robaxin TAB] 500 mg PO BID PRN #14 tab 12/03/20 Unknown Rx Ondansetron [Zofran Odt] 4 mg PO Q6HR PRN #25 tab.rapdis 05/22/22 Unknown Rx HYDROcodone/APAP 5-325 [Mallie 1 each PO Q6HR PRN 3 Days #9 tablet 06/08/22 Unknown Rx 5/325] Nystatin/Triamcin 30 gm TP BID #1 cream..g. 06/08/22 Unknown Rx [Nystatin-Triamcinolone Cream] ED Physical Exam - General Limitations: No Limitations General appearance: alert, in no apparent distress, other (Unkempt) - Head Head exam: Present: atraumatic, normocephalic - Eye Eye exam: Present: normal appearance, PERRL, EOMI - ENT ENT exam: Present: mucous membranes moist - Neck Neck exam: Present: normal inspection, tenderness - Respiratory Respiratory exam: Present: normal lung sounds bilaterally. Absent: respiratory distress, chest wall tenderness - Cardiovascular Cardiovascular Exam: Present: regular rate, normal rhythm. Absent: systolic murmur, diastolic murmur, rubs, gallop - GI/Abdominal GI/Abdominal exam: Present: soft, normal bowel sounds. Absent: tenderness, guarding, rebound - Extremities Exam Extremities exam: Present: normal inspection. Absent: tenderness, pedal edema, calf tenderness - Back Exam Back exam: Present: normal inspection - Neurological Exam Neurological exam: Present: alert, oriented X3, CN II-XII intact - Psychiatric Psychiatric exam: Present: normal affect, normal mood - Skin Skin exam: Present: warm, dry, intact, normal color. Absent: rash ED Course Vital Signs 06/07/22 22:48 Temperature 99.1 F Pulse Rate 94 H Respiratory 16 Rate Blood Pressure 123/77 [Right] O2 Sat by Pulse 98 Oximetry - Reevaluation(s) Reevaluation #1: 06/08/22 17:48 Patient has been reevaluated several times, and it did take an extended period of time to get her blood work resulted secondary to her being a difficult IV stick. Patient was unable to get her CTA chest secondary to her IV line blowing. Patient is now completely asymptomatic, and is requesting to be discharged home without any further venipuncture or any further studies. As her EKG, chest x-ray, and blood work are all within normal limits, with the patient will be discharged home. Patient will follow-up with a primary care doctor, so. ED Medical Decision Making - Lab Data Result diagrams: 06/08/22 13:05 06/08/22 13:05 - Differential Diagnosis malignancy, malingering, acs, chest pain nos Critical care attestation.: If time is entered above; I have spent that time in minutes in the direct care of this critically ill patient, excluding procedure time. ED Disposition Clinical Impression: Tinea pedis Chest pain Qualifiers: Chest pain type: other chest pain Qualified Code(s): R07.89 - Other chest pain; R07.8 - Other chest pain Disposition: 01 HOME / SELF CARE / HOMELESS Is pt being admited?: No Does the pt Need Aspirin: No Condition: Stable Instructions: Nonspecific Chest Pain, Adult, Athlete's Foot Prescriptions: HYDROcodone/APAP 5-325 [Mallie 5/325] 1 each PO Q6HR PRN 3 Days #9 tablet PRN Reason: Pain Nystatin/Triamcin [Nystatin-Triamcinolone Cream] 30 gm TP BID #1 cream..g. Referrals: PRIMARY CARE, [Primary Care Provider] - 3-5 Days Time of Disposition: 17:54
[2022-06-08] MEDS ORDERED: SODIUM CHLORIDE 0.9% 1000 ML 1,000 ML IV ONE (11:54)
[2022-06-08] MEDS ORDERED: MORPHINE 2 MG/1 ML INJ IV ONE (11:54)
--- NOTE | 2022-06-08 12:39 | XRay Report ---
CHEST 2 VIEWS INDICATION / CLINICAL INFORMATION: Chest Pain. COMPARISON: None available. FINDINGS: SUPPORT DEVICES: None. HEART / MEDIASTINUM: No significant abnormality. LUNGS / PLEURA: No significant pulmonary or pleural abnormality. No pneumothorax. ADDITIONAL FINDINGS: No significant additional findings. IMPRESSION: 1. No acute findings. Signer Name: Victorino Kepm Jr, MD Signed: 06/08/2022 12:34 PM Workstation Name: [id number]
[2022-06-08 14:28] LABS: Basophils % (Auto) 0.3 % (0.0-1.8); Eosinophils # (Auto) 0.1 K/mm3 (0.0-0.4); Eosinophils % (Auto) 0.9 % (0.0-4.3); Hematocrit 41.6 % (30.3-42.9); Hemoglobin 13.7 gm/dl (10.1-14.3); Lymphocytes # (Auto) 1.9 K/mm3 (1.2-5.4); Lymphocytes % (Auto) 23.1 % (13.4-35.0); Mean Corpuscular HGB Conc 33 % (30-34); Mean Corpuscular Volume 90 fl (79-97); Monocytes # (Auto) 0.8 K/mm3 (0.0-0.8); Monocytes % (Auto) 9.6 % (0.0-7.3); Platelet Count 227 K/mm3 (140-440); Red Blood Count 4.62 M/mm3 (3.65-5.03); Red Cell Distribution Width 14.6 % (13.2-15.2)
[2022-06-08 14:35] LABS: Alanine Aminotransferase 91 units/L (7-56); Albumin 4.1 g/dL (3.9-5); Blood Urea Nitrogen 10 mg/dL (7-17); Calcium 9.3 mg/dL (8.4-10.2); Hemolysis Index 8
[2022-06-08 14:36] LABS: BUN/Creatinine Ratio 17
[2022-06-08 14:39] LABS: INR 0.82 (0.87-1.13)
[2022-06-08 14:40] LABS: Partial Thromboplastin Time 26.4 Sec. (24.2-36.6)
[2022-06-08 18:36] VITALS: BP 130/77
--- NOTE | 2022-06-09 11:10 | Electrocardiograph Report ---
[facility] Test Date: 2022-06-08 Test Time: 12:44:51 Pat Name: DALTON VAZQUEZ Department: Room: Gender: F Cyber Analyst: STAR : 1980 Requested By: RAKESH VARGAS Order Number: [id number] Reading MD: Jeffy Junior Measurements Intervals [place] Rate: 64 P: 12 AR: 180 QRS: 54 QRSD: 67 T: 56 QT: 419 QTc: 434 Interpretive Statements Sinus rhythm No previous ECG available for comparison Electronically Signed On 06-09-2022 11:09:52 EDT by Jeffy Junior
== END 2022-06-08 18:32 | disposition home or self-care (01) ==
LOC: ED 22:41
DX: R07.9 Chest pain, unspecified (principal); B35.3 Tinea pedis; I26.99 Other pulmonary embolism without acute cor pulmonale; Z86.718 Personal history of other venous thrombosis and embolism; Z86.73 Personal history of transient ischemic attack (TIA), and cerebral infarction without residual deficits; Z91.09 Other allergy status, other than to drugs and biological substances; Z79.899 Other long term (current) drug therapy
CPT/HCPCS: 36415; 71046; 80053; 84484; 85025; 85610; 85730; 93005; 96361; 96374; 99285; J2270; J7030